=== PATIENT | male | born 1995 | race Caucasian/White ===

== ENCOUNTER 2016-05-25 13:33 | Outpatient (RCR) | payer OTHER | END 2016-08-16 | LOC: WSOH | DX: S60.142A Contusion of left ring finger with damage to nail, initial encounter (principal); S62.665A Nondisplaced fracture of distal phalanx of left ring finger, initial encounter for closed fracture; W23.1XXA Caught, crushed, jammed, or pinched between stationary objects, initial encounter; Y99.0 Civilian activity done for income or pay ==